=== PATIENT | male | born 1945 | race Caucasian/White ===

== ENCOUNTER 2017-05-25 10:20 | Outpatient (CLI) | payer MEDICARE, OTHER | END 2017-05-25 10:21 | LOC: POD 10:20 | PROVIDERS: ATTEND Podiatrist Public Medicine | DX: M20.42 Other hammer toe(s) (acquired), left foot (principal); M21.6X1 Other acquired deformities of right foot; M21.6X2 Other acquired deformities of left foot; L84 Corns and callosities; M79.672 Pain in left foot | CPT/HCPCS: G0463 ==

== ENCOUNTER 2017-11-16 10:18 | Outpatient (CLI) | payer MEDICARE, OTHER | END 2017-11-16 10:20 | LOC: POD 10:18 | PROVIDERS: ATTEND Podiatrist Public Medicine | DX: M20.42 Other hammer toe(s) (acquired), left foot (principal); M21.6X1 Other acquired deformities of right foot; M21.6X2 Other acquired deformities of left foot; L84 Corns and callosities; M79.672 Pain in left foot | CPT/HCPCS: 11721; G0463 ==